=== PATIENT | male | born 1970 | race Caucasian/White ===

== ENCOUNTER 2023-01-17 14:14 | Emergency (ER) | payer BC, OTHER ==
[2023-01-17] MEDS ORDERED: SODIUM CHLORIDE 0.9% 1,000 ML IV STA ×2 (14:35)
[2023-01-17] MEDS ORDERED: ONDANSETRON 4 MG/2 ML VIAL IVP STA (14:35)
[2023-01-17] MEDS ORDERED: SODIUM CHLORIDE 0.9% 500 ML 500 ML IV STA (14:35)
--- NOTE | 2023-01-17 14:37 | ED ---
Dizziness HPI - General Chief Complaint: Dizziness Stated Complaint: dizziness Time Seen by Provider: 01/17/23 14:35 Source: patient, EMS, RN notes reviewed, old records reviewed Mode of arrival: EMS Limitations: no limitations - History of Present Illness Initial Comments: This is a 52-year-old male to the emergency department today for evaluation of w heriberto lightheadedness dizziness no chest pain not feeling well patient does feel dehydrated. Patient does drink occasionally to significantly, smoker with no shortness of breath. Patient does feel weak a little shaky and cough. No travel show sick contacts no nausea vomiting or diarrhea. No other complaints MD Complaint: dizziness, lightheadedness, near syncope -: hour(s) Timing: gradual onset Description: sense of movement, lightheadedness, nausea, near-syncope History of Same: Yes History of Trauma: Yes Severity: moderate Improves With: remaining still, rehydration Worsens With: nothing Associated Symptoms: denies other symptoms Review of Systems ROS Statement: Those systems with pertinent positive or pertinent negative responses have been documented in the HPI. ROS Other: All systems not noted in ROS Statement are negative. Past Medical History Past Medical History: No Reported History Past Surgical History: Orthopedic Surgery Additional Past Surgical History / Comment(s): right leg surgery Past Psychological History: Anxiety, Depression Smoking Status: Current every day smoker Past Alcohol Use History: Daily Past Drug Use History: None Reported General Exam Limitations: no limitations General appearance: alert, in no apparent distress Head exam: Present: atraumatic, normocephalic, normal inspection Eye exam: Present: normal appearance, PERRL, EOMI. Absent: scleral icterus, conjunctival injection, periorbital swelling ENT exam: Present: normal exam, mucous membranes moist Neck exam: Present: normal inspection. Absent: tenderness, meningismus, lymphadenopathy Respiratory exam: Present: normal lung sounds bilaterally. Absent: respiratory distress, wheezes, rales, rhonchi, stridor Cardiovascular Exam: Present: regular rate, normal rhythm, normal heart sounds. Absent: systolic murmur, diastolic murmur, rubs, gallop, clicks GI/Abdominal exam: Present: soft, normal bowel sounds. Absent: distended, tenderness, guarding, rebound, rigid Extremities exam: Present: normal inspection, full ROM, normal capillary refill. Absent: tenderness, pedal edema, joint swelling, calf tenderness Back exam: Present: normal inspection Neurological exam: Present: alert, oriented X3, CN II-XII intact Psychiatric exam: Present: normal affect, normal mood Skin exam: Present: warm, dry, intact, normal color. Absent: rash Course Vital Signs 01/17/23 01/17/23 01/17/23 14:19 14:28 15:30 Temperature 98.6 F Pulse Rate 100 70 Respiratory 18 20 18 Rate Blood Pressure 163/95 134/68 O2 Sat by Pulse 98 98 Oximetry 01/17/23 01/17/23 17:00 18:00 Temperature 98.4 F 98.4 F Pulse Rate 66 86 Respiratory 18 20 Rate Blood Pressure 130/87 131/80 O2 Sat by Pulse 99 97 Oximetry - Reevaluation(s) Reevaluation #1: 01/17/23 16:30 Medical records reviewed Reevaluation #2: 01/17/23 16:30 Patient symptoms improved Reevaluation #3: 01/17/23 16:30 Patient informed results questions answered Reevaluation #4: 01/17/23 16:30 Was pt. sent in by a medical professional or institution? @ -no Did you speak to anyone other than the patient for history? @ -no Did you review nursing and triage notes? @ -agree Were old charts reviewed? @ -no Differential Diagnosis? @ -prior EKG interpreted by me (3pts min.)? @ -yes X-rays interpreted by me (1pt min.)? @ -no CT interpreted by me (1pt min.)? @ -no U/S interpreted by me (1pt. min.)? @ -no What testing was considered but not performed? (CT, X-rays, U/S, labs)? Why? @ -no What meds were considered but not given? Why? @ -no Did you discuss the management of the patient with other professionals? @ -no Did you reconcile home meds? @ -no Was smoking cessation discussed for >3mins.? @ -no Was critical care preformed (if so, how long)? @ -no Were there social determinants of health that impacted care today? How? (Homelessness, low income, unemployed, alcoholism, drug addiction, transportation, low edu. Level, literacy, decrease access to med. care, fci, rehab)? @ -no Was there de-escalation of care discussed even if they declined? (Discuss DNR or withdrawal of care, Hospice)? @ -no What co-morbidities impacted this encounter? (DM, HTN, Smoking, COPD, CAD, Cancer, CVA, Hep., AIDS, mental health diagnosis, sleep apnea, morbid obesity)? @ -none Was patient admitted / discharged? @ -52 male DF for evaluation of weakness, patient comes in with lightheadedness dizziness dehydration not feeling well. Patient does have abnormal electrolytes which will be replaced patient feels improved and can be discharged Discharge Undiagnosed new problem with uncertain prognosis? @ -no Drug Therapy requiring intensive monitoring for toxicity (Heparin, Nitro, Insulin, Cardizem)? @ -no Were any procedures done? @ -no Diagnosis/symptom? @ -Hypokalemia, hypomagnesemia Acute, or Chronic, or Acute on Chronic? @ -no Uncomplicated (without systemic symptoms) or Complicated (systemic symptoms)? @ -uncomplicated Side effects of treatment? @ -no Exacerbation, Progression, or Severe Exacerbation] @ -no Poses a threat to life or bodily function? @ -no Reevaluation #5: 01/17/23 16:30 Differential Weakness: Hypoglycemia, shock, sepsis, hyponatremia, anemia, infection, SD, ETOH, adverse medicine reaction, overdose, stroke, this is not meant to be an all-inclusive list. EKG Findings - EKG Comments: EKG Findings:: EKG is rate of 79 NH 137 QRS 86 QTc 438 Medical Decision Making - Medical Decision Making 52 male to the emergency department for evaluation of significant dehydration low potassium also a low magnesium, will try to place patient feeling improved and can be discharged home - Lab Data Result diagrams: 01/17/23 15:45 01/17/23 15:45 Lab Results 01/17/23 01/17/23 01/17/23 Range/Units 15:45 15:45 15:45 WBC 8.6 (3.8-10.6) k/uL RBC 3.98 L (4.30-5.90) m/uL Hgb 13.8 (13.0-17.5) gm/dL Hct 40.0 (39.0-53.0) % MCV 100.3 H (80.0-100.0) fL MCH 34.7 (25.0-35.0) pg MCHC 34.6 (31.0-37.0) g/dL RDW 13.7 (11.5-15.5) % Plt Count 185 (150-450) k/uL MPV 7.1 Neutrophils % 87 % Lymphocytes % 8 % Monocytes % 3 % Eosinophils % 2 % Basophils % 0 % Neutrophils # 7.4 (1.3-7.7) k/uL Lymphocytes # 0.7 L (1.0-4.8) k/uL Monocytes # 0.2 (0-1.0) k/uL Eosinophils # 0.2 (0-0.7) k/uL Basophils # 0.0 (0-0.2) k/uL PT 9.9 (9.0-12.0) sec INR 0.9 (<1.2) Sodium 137 (137-145) mmol/L Potassium 3.4 L (3.5-5.1) mmol/L Chloride 98 (98-107) mmol/L Carbon Dioxide 29 (22-30) mmol/L Anion Gap 10 mmol/L BUN 4 L (9-20) mg/dL Creatinine 0.45 L (0.66-1.25) mg/dL Est GFR (CKD-EPI)AfAm >90 (>60 ml/min/1.73 sqM) Est GFR (CKD-EPI)NonAf >90 (>60 ml/min/1.73 sqM) Glucose 88 (74-99) mg/dL Calcium 8.3 L (8.4-10.2) mg/dL Phosphorus 3.5 (2.5-4.5) mg/dL Magnesium 1.4 L (1.6-2.3) mg/dL Total Bilirubin 0.9 (0.2-1.3) mg/dL AST 20 (17-59) U/L ALT 10 (4-49) U/L Alkaline Phosphatase 85 (38-126) U/L Total Protein 6.4 (6.3-8.2) g/dL Albumin 3.3 L (3.5-5.0) g/dL Lipase 46 (23-300) U/L Serum Alcohol <10 mg/dL - EKG Data -: EKG Interpreted by Me (EKG shows sinus 79. 137 QRS 88 QTc 437) Disposition Clinical Impression: Dehydration, Weakness, Hypokalemia, Hypomagnesemia Disposition: HOME SELF-CARE Condition: Good Instructions (If sedation given, give patient instructions): Dizziness (ED) Is patient prescribed a controlled substance at d/c from ED?: No Referrals: Nonstaff,Physician [Primary Care Provider] - 1-2 days Time of Disposition: 16:05
[2023-01-17 15:59] LABS: Basophils % (A) 0 %; Eosinophils # (A) 0.2 k/uL (0-0.7); Eosinophils % (A) 2 %; HGB 13.8 gm/dL (13.0-17.5); Lymphocytes # (A) 0.7 k/uL (1.0-4.8); Lymphocytes % (A) 8 %; MCH 34.7 pg (25.0-35.0); MCHC 34.6 g/dL (31.0-37.0); MCV 100.3 fL (80.0-100.0); Mean Platelet Volume 7.1; Monocytes # (A) 0.2 k/uL (0-1.0); Monocytes % (A) 3 %; Neutrophils # (A) 7.4 k/uL (1.3-7.7); Neutrophils % (A) 87 %; Platelet Count 185 k/uL (150-450); RBC 3.98 m/uL (4.30-5.90); RDW 13.7 % (11.5-15.5); WBC 8.6 k/uL (3.8-10.6)
[2023-01-17 16:05] LABS: INR 0.9 (<1.2); Prothrombin Time 9.9 sec (9.0-12.0)
[2023-01-17 16:11] LABS: ALT 10 U/L (4-49); AST 20 U/L (17-59); African American GFR (CKD) >90 (>60 ml/min/1.73 sqM); Albumin 3.3 g/dL (3.5-5.0); Alcohol <10 mg/dL; Alkaline Phosphatase 85 U/L (38-126); Anion Gap 10 mmol/L; Blood Urea Nitrogen 4 mg/dL (9-20); Calcium 8.3 mg/dL (8.4-10.2); Carbon Dioxide 29 mmol/L (22-30); Chloride 98 mmol/L (98-107); Glucose 88 mg/dL (74-99); Lipase 46 U/L (23-300); Magnesium 1.4 mg/dL (1.6-2.3); Non-African American GFR(CKD) >90 (>60 ml/min/1.73 sqM); Phosphorus 3.5 mg/dL (2.5-4.5); Potassium 3.4 mmol/L (3.5-5.1); Sodium 137 mmol/L (137-145); Total Bilirubin 0.9 mg/dL (0.2-1.3); Total Protein 6.4 g/dL (6.3-8.2)
[2023-01-17] MEDS ORDERED: POTASSIUM CHLORIDE ER 20 MEQ TAB.ER PO STA ×2 (16:28)
[2023-01-17] MEDS ORDERED: MAGNESIUM OXIDE 400 MG TAB PO STA ×2 (16:28)
[2023-01-17 18:01] VITALS: TEMP 98.4
[2023-01-17 18:17] VITALS: BP 131/80; PULSE 86; RESP 20
== END 2023-01-17 18:09 | disposition home or self-care (01) ==
LOC: EC 14:14
DX: E86.0 Dehydration (principal); E83.42 Hypomagnesemia; E87.6 Hypokalemia; R53.1 Weakness; F17.200 Nicotine dependence, unspecified, uncomplicated; Z86.59 Personal history of other mental and behavioral disorders
CPT/HCPCS: 36415; 80053; 83690; 83735; 84100; 85025; 85610; 80320; 99284; 96374; 96375; 96361 ×3; J3360; J2405

== ENCOUNTER 2023-08-07 06:44 | Emergency (ER) | payer BC, OTHER ==
[2023-08-07] MEDS ORDERED: KETOROLAC 15 MG/ML 1 ML VIAL IM STA (07:14)
[2023-08-07] MEDS ORDERED: MORPHINE SULFATE 4 MG/ML SYRINGE IM STA (07:14)
--- NOTE | 2023-08-07 07:21 | ED ---
General Adult HPI - General Chief complaint: Back Pain/Injury Stated complaint: Sciatica Time Seen by Provider: 08/07/23 07:02 Source: patient, RN notes reviewed Mode of arrival: wheelchair Limitations: no limitations - History of Present Illness Initial comments: Patient is a pleasant 53-year-old male presenting to the emergency department with concerns for sciatica. Patient does have history of similar episodes twice previously. This one started around week ago. Patient did see his doctor and was prescribed naproxen without much improvement of symptoms. Discomfort starts in the left sciatic region and does radiate towards the left upper leg. No weakness. No incontinence or retention of bladder or bowel. - Related Data Previous Rx's Medication Instructions Recorded predniSONE [Deltasone] 20 mg PO BID #10 tab 08/07/23 Allergies Allergy/AdvReac Type Severity Reaction Status Date / Time No Known Allergies Allergy Verified 08/07/23 07:00 Review of Systems ROS Statement: Those systems with pertinent positive or pertinent negative responses have been documented in the HPI. ROS Other: All systems not noted in ROS Statement are negative. Constitutional: Denies: fever Eyes: Denies: eye pain ENT: Denies: ear pain Respiratory: Denies: cough, dyspnea Cardiovascular: Denies: chest pain Musculoskeletal: Reports: back pain Neurological: Denies: weakness Past Medical History Past Medical History: No Reported History History of Any Multi-Drug Resistant Organisms: None Reported Past Surgical History: Orthopedic Surgery Additional Past Surgical History / Comment(s): right leg surgery Past Psychological History: Anxiety, Depression Smoking Status: Current every day smoker Past Alcohol Use History: Abuse, Daily Past Drug Use History: Marijuana General Exam Limitations: no limitations General appearance: alert, in no apparent distress Head exam: Present: normocephalic Eye exam: Present: normal appearance Respiratory exam: Present: normal lung sounds bilaterally Cardiovascular Exam: Present: regular rate, normal rhythm Expanded Peripheral pulses: 2+: Posterior Tibialis (R), Posterior Tibialis (L) GI/Abdominal exam: Present: soft. Absent: tenderness, pulsatile mass Extremities exam: Present: normal inspection Back exam: Present: tenderness (Left sacroiliac region) Neurological exam: Present: alert. Absent: motor sensory deficit Expanded Sensory exam: Lower Extremity Light Touch: Normal Motor strength exam: RLE: 5, LLE: 5 Psychiatric exam: Present: normal affect, normal mood Skin exam: Present: normal color Course Vital Signs 08/07/23 06:57 Temperature 98 F Pulse Rate 95 Respiratory 18 Rate Blood Pressure 143/91 O2 Sat by Pulse 91 L Oximetry Medical Decision Making - Medical Decision Making Was pt. sent in by a medical professional or institution (, [facility], CAMPUS ADMINISTRATOR, urgent care, hospital, or long-term...) When possible be specific @ -No Did you speak to anyone other than the patient for history (EMS, parent, family, police, friend...)? What history was obtained from this source @ -No Did you review nursing and triage notes (agree or disagree)? Why? @ -I reviewed and agree with nursing and triage notes Were old charts reviewed (outside hosp., previous admission, EMS record, old EKG, old radiological studies, urgent care reports/EKG's, long-term records)? Report findings @ -No old charts were reviewed Differential Diagnosis (chest pain, altered mental status, abdominal pain women, abdominal pain men, vaginal bleeding, weakness, fever, dyspnea, syncope, heada malena, dizziness, GI bleed, back pain, seizure, CVA, palpatations, mental health, musculoskeletal)? @ -Differential Back Pain: Strain, zoster, cauda equina syndrome, epidural abscess, vertebral osteomyelitis, discitis, fracture, subluxation, disc herniation, DJD, spinal stenosis, dissection, AAA, pancreatitis, peptic ulcer disease, pyelonephritis, kidney stone, this is not meant to be an all-inclusive list. EKG interpreted by me (3pts min.). @ -As above X-rays interpreted by me (1pt min.). @ -None done CT interpreted by me (1pt min.). @ -None done U/S interpreted by me (1pt. min.). @ -None done What testing was considered but not performed or refused? (CT, X-rays, U/S, labs)? Why? @ -None What meds were considered but not given or refused? Why? @ -None Did you discuss the management of the patient with other professionals (professionals i.e. [facility] Ace[facility]o, CAMPUS ADMINISTRATOR, lab, RT, psych nurse, social and human services assistant, rn forensic, teacher, money position officer, telephonic case manager)? Give summary @ -No Was smoking cessation discussed for >3mins.? @ -No Was critical care preformed (if so, how long)? @ -No Were there social determinants of health that impacted care today? How? (Homelessness, low income, unemployed, alcoholism, drug addiction, transpo rtation, low edu. Level, literacy, decrease access to med. care, correction, rehab)? @ -No Was there de-escalation of care discussed even if they declined (Discuss DNR or withdrawal of care, Hospice)? DNR status @ -No What co-morbidities impacted this encounter? (DM, HTN, Smoking, COPD, CAD, Cancer, CVA, ARF, Chemo, Hep., AIDS, mental health diagnosis, sleep apnea, morbid obesity)? @ -None Was patient admitted / discharged? Hospital course, mention meds given and route, prescriptions, significant lab abnormalities, going to OR and other pertinent info. @ -Patient presents with sciatica-type symptoms with history of sciatica. Patient will be provided IM medications and prescription for steroids for discharge. Patient advised to follow-up with his primary care physician. Undiagnosed new problem with uncertain prognosis? @ -No Drug Therapy requiring intensive monitoring for toxicity (Heparin, Nitro, Insulin, Cardizem)? @ -No Were any procedures done? @ -No Diagnosis/symptom? @ -Sciatica Acute, or Chronic, or Acute on Chronic? @ -Acute Uncomplicated (without systemic symptoms) or Complicated (systemic symptoms)? @ -default Side effects of treatment? @ -No Exacerbation, Progression, or Severe Exacerbation? @ -No Poses a threat to life or bodily function? How? (Chest pain, [place], [place], pneumonia, PE, COPD, DKA, ARF, appy, cholecystitis, CVA, Diverticulitis, Homicidal, Suicidal, threat to staff... and all critical care pts) @ -No Disposition Clinical Impression: Sciatica Disposition: HOME SELF-CARE Condition: Stable Instructions (If sedation given, give patient instructions): Sciatica (ED) Additional Instructions: Prescription sent to pharmacy. Do not use steroids with anti-inflammatories. Please do follow-up to primary care physician in the next one or 2 days for recheck. Return for increased pain, weakness, fever, loss of control of bowel or bladder function, worsening symptoms or any other concerns. Prescriptions: predniSONE [Deltasone] 20 mg PO BID #10 tab Is patient prescribed a controlled substance at d/c from ED?: No Referrals: Rubén Antoine MD [Primary Care Provider] - 1-2 days Time of Disposition: 07:20
[2023-08-07 07:33] VITALS: BP 143/91; PULSE 90; RESP 18; TEMP 98
== END 2023-08-07 07:30 | disposition home or self-care (01) ==
LOC: EC 06:44
DX: M54.32 Sciatica, left side (principal); F17.200 Nicotine dependence, unspecified, uncomplicated; F12.90 Cannabis use, unspecified, uncomplicated
CPT/HCPCS: 99283; 96372 ×2; J2270; J1885

== ENCOUNTER 2023-08-14 12:03 | Emergency (ER) | payer BC, OTHER ==
--- NOTE | 2023-08-14 12:13 | ED ---
General Adult HPI - General Source: patient, RN/MD, EMS, RN notes reviewed Mode of arrival: EMS Limitations: no limitations <Shamir Lau - Last Filed: 08/14/23 12:11> - General Source: patient, RN notes reviewed Mode of arrival: EMS Limitations: no limitations <Verito Howell - Last Filed: 08/15/23 01:46> - General Chief complaint: Abdominal Pain Stated complaint: Abd pain Time Seen by Provider: 08/14/23 12:11 - History of Present Illness Initial comments: 53-year-old male presents emergency Department chief complaint abdominal pain. Patient presented via EMS awho provided the patient with fentanyl. He states that pain no left lower quadrant of last 3 days. Patient went to some nausea, constipation issues. Patient normally is on his pain meds. Patient denies any trauma denies any (Shamir Lau) This is a 53-year-old male who presents to the emergency department for abdominal pain, constipation, and sciatica. States that he's had problems with sciatica on the left hand side over the last few days. He does have a prescription for [place], which he has been increasing the use of due to the increase in his pain. As a result, this has made him constipated. He has not had a bowel movement in about 3 days, which is causing abdominal pain. He is not taking any [id number] stool softeners. Also reports feeling hot and cold starting earlier today. Denies any coughing, congestion, chest pain, or shortness of breath. (Verito Howell) - Related Data Home Medications Medication Instructions Recorded Confirmed ALPRAZolam [Xanax] 0.25 mg PO BID PRN 08/14/23 08/14/23 Acamprosate Calcium [Campral] 666 mg PO TID 08/14/23 08/14/23 Albuterol Inhaler [Ventolin Hfa 1 - 2 puff INHALATION RT-Q6H PRN 08/14/23 08/14/23 Inhaler] HYDROcodone/APAP 5-325MG [[place] 1 tab PO BID PRN 08/14/23 08/14/23 5-325] Naproxen [EC-Naprosyn] 500 mg PO BID PRN 08/14/23 08/14/23 Previous Rx's Medication Instructions Recorded Lactulose 20 gm PO DAILY PRN #473 ml 08/14/23 Lidocaine 5% Patch [Lidoderm 5% 1 patch TOPICAL DAILY PRN #30 patch 08/14/23 Patch] methocarbamoL [Robaxin-750] 1,500 mg PO TID PRN #30 tab 08/14/23 predniSONE 50 mg PO DAILY 5 Days #5 tab 08/14/23 Allergies Allergy/AdvReac Type Severity Reaction Status Date / Time No Known Allergies Allergy Verified 08/14/23 20:45 Review of Systems ROS Other: All systems not noted in ROS Statement are negative. <Shamir Lau - Last Filed: 08/14/23 12:11> ROS Other: All systems not noted in ROS Statement are negative. <Verito Howell - Last Filed: 08/15/23 01:46> ROS Statement: Those systems with pertinent positive or pertinent negative responses have been documented in the HPI. Past Medical History Past Medical History: No Reported History History of Any Multi-Drug Resistant Organisms: None Reported Past Surgical History: Orthopedic Surgery Additional Past Surgical History / Comment(s): right leg surgery Past Alcohol Use History: Daily Past Drug Use History: None Reported <Shamir Lau - Last Filed: 08/14/23 12:11> General Exam <Shamir Lau - Last Filed: 08/14/23 12:11> Limitations: no limitations General appearance: alert, in no apparent distress Head exam: Present: atraumatic, normocephalic, normal inspection Respiratory exam: Present: normal lung sounds bilaterally. Absent: respiratory distress, wheezes, rales, rhonchi, stridor Cardiovascular Exam: Present: regular rate, normal rhythm, normal heart sounds. Absent: systolic murmur, diastolic murmur, rubs, gallop, clicks GI/Abdominal exam: Present: soft, normal bowel sounds. Absent: distended, tenderness, guarding, rebound, rigid Neurological exam: Present: alert, oriented X3, CN II-XII intact Psychiatric exam: Present: normal affect, normal mood Skin exam: Present: warm, dry, intact, normal color. Absent: rash <Verito Howell - Last Filed: 08/15/23 01:46> - General Exam Comments Initial Comments: Visual Physical Exam Vital signs reviewed General: Well-appearing, nontoxic, no acute distress. Head: Normocephalic, atraumatic Eyes: PERRLA, EOMI ENT: Airway patent Chest: Nonlabored breathing Skin: No visual rash, normal skin tone Neuro: Alert and oriented 3 Musculoskeletal: No gross abnormalities (Shamir Lau) Course Vital Signs 08/14/23 08/14/23 08/14/23 13:09 20:00 21:00 Temperature 98 F 98.1 F Pulse Rate 122 H 90 84 Respiratory 18 20 20 Rate Blood Pressure 127/89 140/107 157/89 O2 Sat by Pulse 92 L 96 96 Oximetry Medical Decision Making <Shamir Lau - Last Filed: 08/14/23 12:11> - Lab Data Result diagrams: 08/14/23 13:13 08/14/23 13:13 - Radiology Data Radiology results: report reviewed, image reviewed <Verito Howell - Last Filed: 08/15/23 01:46> - Medical Decision Making I completed the quick note portion of this chart signed Shamir Lau PA-C (Shamir Lau) This is a 53-year-old male who presents to the emergency department for abdominal pain, constipation, and sciatica. Was pt. sent in by a medical professional or institution? @ -No Did you speak to anyone other than the patient for history? @ -No Did you review nursing and triage notes? @ -Yes, and I agree, it is accurate with regards to the patient's symptoms. Were old charts reviewed? @ -No Differential Diagnosis? @ -Differential Abdominal Pain Men: Appendicitis, cholecystitis, diverticulosis, ischemic bowel, pancreatitis, hepatitis, UTI, gastroenteritis, AAA, incarcerated hernia, bowel obstruction, constipation, inflammatory bowel, hepatitis, peptic ulcer disease, splenic infarction, perforated viscus, testicular torsion, this is not meant to be an all-inclusive list EKG interpreted by me (3pts min.)? @ -Not obtained X-rays interpreted by me (1pt min.)? @ -KUB x-ray obtained. My interpretation identifies moderate stool burden. CT interpreted by me (1pt min.)? @ -Not obtained U/S interpreted by me (1pt. min.)? @ -None What testing was considered but not performed? (CT, X-rays, U/S, labs)? Why? @ -None What meds were considered but not given? Why? @ -None Did you discuss the management of the patient with other professionals? @ -No Did you reconcile home meds? @ -No Was smoking cessation discussed for >3mins.? @ -I discussed smoking cessation for greater than 3 minutes. The risk of smoking were discussed with the patient including but not limited to risks of cancer, stroke, coronary artery disease and COPD. Also discussed with patient were multiple methods of quitting smoking. Lastly we discussed the financial cost of smoking. Was critical care preformed (if so, how long)? @ -No Were there social determinants of health that impacted care today? How? (Homelessness, low income, unemployed, alcoholism, drug addiction, transportation, low edu. Level, literacy, decrease access to med. care, shelter, rehab)? @ -No Was there de-escalation of care discussed even if they declined? (Discuss DNR or withdrawal of care, Hospice)? @ -No What co-morbidities impacted this encounter? (DM, HTN, Smoking, COPD, CAD, Cancer, CVA, Hep., AIDS, mental health diagnosis, sleep apnea, morbid obesity)? @ -Smoking Was patient admitted / discharged? @ -Discharged. Lab work obtained and found to be unremarkable. COVID, influenza, and RSV testing were negative. KUB x-ray obtained revealing moderate stool burden without other acute process. I did offer an enema as the quickest and most effective way to manage his constipation, however he declined. He was instead given a dose of lactulose in the emergency department. His symptoms with regards to the sciatica were also well controlled. He was given a prescription for prednisone, robaxin, and lidocaine patches for management of the sciatica along with a prescription for lactulose for further management of the constipation. He's also advised to remain well-hydrated and follow-up with his primary care provider. Undiagnosed new problem with uncertain prognosis? @ -None Drug Therapy requiring intensive monitoring for toxicity (Heparin, Nitro, Insulin, Cardizem)? @ -None Were any procedures done? @ -None Diagnosis/symptom? @ -Sciatica, constipation Acute, or Chronic, or Acute on Chronic? @ -Acute Uncomplicated (without systemic symptoms) or Complicated (systemic symptoms)? @ -Uncomplicated Side effects of treatment? @ -None Exacerbation, Progression, or Severe Exacerbation] @ -Not applicable Poses a threat to life or bodily function? @ -No Return precautions reviewed in depth, the patient is instructed to return to the emergency department with any new, worsening, or concerning symptoms. Patient verbalized understanding. This case was discussed in detail with the attending ED physician, Dr. Jesus. Presentation, findings, and treatment plan discussed in detail as well. (Verito Howell) - Lab Data Lab Results 08/14/23 08/14/23 08/14/23 Range/Units 13:13 13:13 13:13 WBC 9.4 (3.8-10.6) k/uL RBC 5.34 (4.30-5.90) m/uL Hgb 17.4 (13.0-17.5) gm/dL Hct 51.3 (39.0-53.0) % MCV 96.1 (80.0-100.0) fL MCH 32.5 (25.0-35.0) pg MCHC 33.8 (31.0-37.0) g/dL RDW 14.9 (11.5-15.5) % Plt Count 264 (150-450) k/uL MPV 7.6 Neutrophils % 83 % Lymphocytes % 10 % Monocytes % 6 % Eosinophils % 1 % Basophils % 0 % Neutrophils # 7.7 (1.3-7.7) k/uL Lymphocytes # 0.9 L (1.0-4.8) k/uL Monocytes # 0.5 (0-1.0) k/uL Eosinophils # 0.1 (0-0.7) k/uL Basophils # 0.0 (0-0.2) k/uL Sodium 135 L (137-145) mmol/L Potassium 3.7 (3.5-5.1) mmol/L Chloride 89 L (98-107) mmol/L Carbon Dioxide 28 (22-30) mmol/L Anion Gap 18 mmol/L BUN 20 (9-20) mg/dL Creatinine 0.62 L (0.66-1.25) mg/dL Est GFR (CKD-EPI)AfAm >90 (>60 ml/min/1.73 sqM) Est GFR (CKD-EPI)NonAf >90 (>60 ml/min/1.73 sqM) Glucose 107 H (74-99) mg/dL Plasma Lactic Acid Leonard (0.7-2.0) mmol/L Calcium 10.3 H (8.4-10.2) mg/dL Total Bilirubin 1.4 H (0.2-1.3) mg/dL AST 45 (17-59) U/L ALT 19 (4-49) U/L Alkaline Phosphatase 98 (38-126) U/L Total Protein 8.4 H (6.3-8.2) g/dL Albumin 4.5 (3.5-5.0) g/dL Amylase 55 (30-110) U/L Lipase 118 (23-300) U/L Urine Color Yellow Urine Appearance Clear (Clear) Urine pH 6.0 (5.0-8.0) Ur Specific [place] 1.031 (1.001-1.035) Urine Protein 1+ H (Negative) Urine Glucose (UA) Negative (Negative) Urine Ketones 1+ H (Negative) Urine Blood Negative (Negative) Urine Nitrite Negative (Negative) Urine Bilirubin Negative (Negative) Urine Urobilinogen <2.0 (<2.0) mg/dL Ur Leukocyte Esterase Negative (Negative) Urine RBC <1 (0-5) /hpf Urine WBC 1 (0-5) /hpf Hyaline Casts 3 H (0-2) /lpf Urine Mucus Occasional H (None) /hpf Influenza Type A (PCR) (Not Detectd) Influenza Type B (PCR) (Not Detectd) RSV (PCR) (Not Detectd) SARS-CoV-2 (PCR) (Not Detectd) 08/14/23 08/14/23 Range/Units 13:13 19:50 WBC (3.8-10.6) k/uL RBC (4.30-5.90) m/uL Hgb (13.0-17.5) gm/dL Hct (39.0-53.0) % MCV (80.0-100.0) fL MCH (25.0-35.0) pg MCHC (31.0-37.0) g/dL RDW (11.5-15.5) % Plt Count (150-450) k/uL MPV Neutrophils % % Lymphocytes % % Monocytes % % Eosinophils % % Basophils % % Neutrophils # (1.3-7.7) k/uL Lymphocytes # (1.0-4.8) k/uL Monocytes # (0-1.0) k/uL Eosinophils # (0-0.7) k/uL Basophils # (0-0.2) k/uL Sodium (137-145) mmol/L Potassium (3.5-5.1) mmol/L Chloride (98-107) mmol/L Carbon Dioxide (22-30) mmol/L Anion Gap mmol/L BUN (9-20) mg/dL Creatinine (0.66-1.25) mg/dL Est GFR (CKD-EPI)AfAm (>60 ml/min/1.73 sqM) Est GFR (CKD-EPI)NonAf (>60 ml/min/1.73 sqM) Glucose (74-99) mg/dL Plasma Lactic Acid Leonard 1.2 (0.7-2.0) mmol/L Calcium (8.4-10.2) mg/dL Total Bilirubin (0.2-1.3) mg/dL AST (17-59) U/L ALT (4-49) U/L Alkaline Phosphatase (38-126) U/L Total Protein (6.3-8.2) g/dL Albumin (3.5-5.0) g/dL Amylase (30-110) U/L Lipase (23-300) U/L Urine Color Urine Appearance (Clear) Urine pH (5.0-8.0) Ur Specific [place] (1.001-1.035) Urine Protein (Negative) Urine Glucose (UA) (Negative) Urine Ketones (Negative) Urine Blood (Negative) Urine Nitrite (Negative) Urine Bilirubin (Negative) Urine Urobilinogen (<2.0) mg/dL Ur Leukocyte Esterase (Negative) Urine RBC (0-5) /hpf Urine WBC (0-5) /hpf Hyaline Casts (0-2) /lpf Urine Mucus (None) /hpf Influenza Type A (PCR) Not Detected (Not Detectd) Influenza Type B (PCR) Not Detected (Not Detectd) RSV (PCR) Not Detected (Not Detectd) SARS-CoV-2 (PCR) Not Detected (Not Detectd) Disposition <Shamir Lau - Last Filed: 08/14/23 12:11> Is patient prescribed a controlled substance at d/c from ED?: No <Verito Howell - Last Filed: 08/15/23 01:46> Clinical Impression: Nicotine dependence, Sciatica, Constipation Disposition: HOME SELF-CARE Instructions (If sedation given, give patient instructions): Constipation (ED), Sciatica (ED), Lumbar Radiculopathy (ED) Additional Instructions: Return to the emergency department with any new, worsening, or concerning sympto ms. Take the prednisone daily for 5 days. You can take the muscle relaxant as 1-2 tablets up to 3-4 times daily. Be aware that this may make you drowsy. You can apply the lidocaine patches daily. You can also take the lactulose daily for management of the constipation. Make sure that you remain well-hydrated. Follow up with your primary care provider in 1-2 days. Prescriptions: Lactulose 20 gm PO DAILY PRN #473 ml PRN Reason: Constipation Lidocaine 5% Patch [Lidoderm 5% Patch] 1 patch TOPICAL DAILY PRN #30 patch PRN Reason: Pain predniSONE 50 mg PO DAILY 5 Days #5 tab methocarbamoL [Robaxin-750] 1,500 mg PO TID PRN #30 tab PRN Reason: Pain Referrals: Rubén Antoine MD [Primary Care Provider] - 1-2 days
--- NOTE | 2023-08-14 12:33 | XR ---
EXAMINATION TYPE: XR [facility] DATE OF EXAM: 08/14/2023 12:28 PM CLINICAL INDICATION:Male, 53 years old with history of abdominal pain; COMPARISON: None. TECHNIQUE: One radiographic view of the abdomen was obtained. FINDINGS: Moderate amount of stool in the rectum/lower abdomen/pelvis. The bowel gas pattern is nonsp ecific without dilated loops of small or large bowel. There is no evidence for organomegaly or pneumo peritoneum. The osseous structures are intact. No abnormal calcifications are present. Fecal materi al and gas are demonstrated throughout the colon and rectum. Degeneration changes throughout the spi ne. IMPRESSION: Moderate stool burden in the rectum/lower abdomen/pelvis, Nonspecific bowel gas pattern without radio graphic evidence for acute process.
[2023-08-14 13:44] LABS: Basophils % (A) 0 %; Eosinophils # (A) 0.1 k/uL (0-0.7); Eosinophils % (A) 1 %; HCT 51.3 % (39.0-53.0); HGB 17.4 gm/dL (13.0-17.5); Lymphocytes # (A) 0.9 k/uL (1.0-4.8); Lymphocytes % (A) 10 %; MCH 32.5 pg (25.0-35.0); MCHC 33.8 g/dL (31.0-37.0); MCV 96.1 fL (80.0-100.0); Mean Platelet Volume 7.6; Monocytes # (A) 0.5 k/uL (0-1.0); Monocytes % (A) 6 %; Neutrophils # (A) 7.7 k/uL (1.3-7.7); Neutrophils % (A) 83 %; Platelet Count 264 k/uL (150-450); RBC 5.34 m/uL (4.30-5.90); RDW 14.9 % (11.5-15.5); WBC 9.4 k/uL (3.8-10.6)
[2023-08-14 13:50] LABS: ALT 19 U/L (4-49); African American GFR (CKD) >90 (>60 ml/min/1.73 sqM); Albumin 4.5 g/dL (3.5-5.0); Amylase 55 U/L (30-110); Anion Gap 18 mmol/L; Blood Urea Nitrogen 20 mg/dL (9-20); Calcium 10.3 mg/dL (8.4-10.2); Carbon Dioxide 28 mmol/L (22-30); Chloride 89 mmol/L (98-107); Glucose 107 mg/dL (74-99); Lipase 118 U/L (23-300); Non-African American GFR(CKD) >90 (>60 ml/min/1.73 sqM); Sodium 135 mmol/L (137-145); Total Bilirubin 1.4 mg/dL (0.2-1.3); Total Protein 8.4 g/dL (6.3-8.2)
[2023-08-14 13:52] LABS: AST 45 U/L (17-59); Alkaline Phosphatase 98 U/L (38-126); Potassium 3.7 mmol/L (3.5-5.1)
[2023-08-14 14:59] LABS: Appearance,Urine Clear (Clear); Bilirubin,Urine Negative (Negative); Blood,Urine Negative (Negative); Color,Urine Yellow; Glucose,Urine (UA) Negative (Negative); Hyaline Casts,Urine 3 /lpf (0-2); Ketones,Urine 1+ (Negative); Leukocyte Esterase,Urine Negative (Negative); Mucus,Urine Occasional /hpf; Nitrite,Urine Negative (Negative); Protein,Urine 1+ (Negative); RBC,Urine <1 /hpf (0-5); Specific Gravity,Urine 1.031 (1.001-1.035); Urobilinogen,Urine <2.0 mg/dL (<2.0); WBC,Urine 1 /hpf (0-5)
[2023-08-14] MEDS ORDERED: DEXAMETHASONE SOD PHOSPHATE 10 MG/ML 1 ML VIAL IVP STA (19:27)
[2023-08-14] MEDS ORDERED: ORPHENADRINE 30 MG/ML 2 ML VIAL IVP STA (19:27)
[2023-08-14] MEDS ORDERED: KETOROLAC 15 MG/ML 1 ML VIAL IVP STA (19:27)
[2023-08-14] MEDS ORDERED: LACTULOSE 20 GM/30 ML CUP PO ONE (19:27)
[2023-08-14] MEDS ORDERED: LIDOCAINE 4% PATCH TOPICAL ONE (19:27)
[2023-08-14] MEDS ORDERED: SODIUM CHLORIDE 0.9% 1,000 ML IV STA (19:28)
[2023-08-14 21:28] VITALS: BP 157/89; PULSE 84; RESP 20; TEMP 98.1
== END 2023-08-14 21:31 | disposition home or self-care (01) ==
LOC: EC 12:03
DX: M54.32 Sciatica, left side (principal); R10.32 Left lower quadrant pain; F17.200 Nicotine dependence, unspecified, uncomplicated; Z20.822 Contact with and (suspected) exposure to COVID-19
CPT/HCPCS: 36415; 80053; 82150; 83605; 83690; 85025; 81001; 87636; 74018; 99285; 96374; 96375 ×2; J1100; J2360; J1885